=== PATIENT | female | born 1990 | race Caucasian/White ===

== ENCOUNTER 2022-06-21 14:19 | Outpatient (CLI) | payer OTHER, SELFPAY ==
[2022-06-21 15:13] LABS: Beta HCG Quantitative < 2.39 mIU/ML
== END 2022-06-21 14:20 | disposition home or self-care (01) ==
LOC: ANHLAB 14:24
PROVIDERS: PCP Obstetrics & Gynecology; Visit Provider Obstetrics & Gynecology
DX: N92.6 Irregular menstruation, unspecified (principal)
CPT/HCPCS: 36415; 84702

== ENCOUNTER 2023-01-10 16:14 | Outpatient (CLI) | payer OTHER, SELFPAY ==
[2023-01-10 16:46] LABS: Basophils Percent Auto 0.2 % (0.2-1.2); Eosinophils Absolute Auto 0.2 K/mm3 (0-0.3); Eosinophils Percent Auto 1.8 % (0-4.4); Hematocrit 37.4 % (37.0-47.0); Hemoglobin 12.6 g/dL (12.0-15.0); Immature Granulocyte Absolute 0.03 K/mm3 (0.00-0.031); Immature Granulocyte Percent A 0.3 % (0-0.5); Lymphocytes Absolute Auto 1.98 K/mm3 (0.9-3.2); Mean Corpuscular HGB Conc 33.7 g/dl (32-36); Mean Corpuscular Hemoglobin 30.6 pg (26-34); Mean Corpuscular Volume 90.8 fl (80-100); Mean Platelet Volume 8.6 fl (7.4-10.4); Monocytes Absolute Auto 0.7 K/mm3 (0.1-0.6); Monocytes Percent Auto 6.8 % (2.6-8.5); Neutrophils Percent Auto 70.9 % (45.5-73.1); Platelet Count Result 291 k/mm3 (150-375); Red Blood Count 4.12 M/mm3 (4.2-5.4); Red Cell Distribution Width 14.6 % (11.5-14.5); White Blood Count 9.9 K/mm3 (4.5-10.0)
[2023-01-10 16:57] LABS: Appearance Urine Clear (Clear); Bilirubin Urine Negative (Negative); Blood Urine Negative (Negative); Color Urine Yellow (Yellow); Glucose Urine UA Negative (Negative); Ketones Urine Negative (Negative); Leukocyte Esterase Ur Negative LEU/UL (NEGATIVE); Nitrate Urine Negative (Negative); Protein Urine Negative (Negative); Specific Grav Ur 1.022 (1.001-1.035); Urobilinogen Urine 0.2 mg/dL (<2.0)
[2023-01-10 16:58] LABS: Alanine Aminotransferase 26 U/L (6-35); Albumin Level 4.5 g/dL (3.5-5.1); Alkaline Phosphatase 78 U/L (38-126); Anion Gap 8 mmol/L (8-16); Aspartate Amino Transferase 30 U/L (14-36); Bilirubin,Total 0.5 mg/dL (0.2-1.3); Blood Urea Nitrogen 12 mg/dL (7-17); Calcium 8.8 mg/dL (8.4-10.2); Carbon Dioxide 27 mmol/L (22-30); Chloride 102 mmol/L (98-107); Cholesterol 188 mg/dL (0-200); Estimated Glomerular Filt Rate > 60; Glucose 95 mg/dL (65-110); HDL Direct 66 mg/dL; Potassium 4.1 mmol/L (3.4-5.0); Sodium 137 mmol/L (137-145); Triglycerides 174 mg/dL (<150)
[2023-01-10 17:08] LABS: LDL Cholesterol Direct 96 mg/dL
[2023-01-10 17:09] LABS: Add Urine Microscopic? NO
[2023-01-10 17:42] LABS: Hemoglobin A1C 5.2 % (<5.7)
== END 2023-01-10 16:15 | disposition home or self-care (01) ==
LOC: ANHLAB 16:15
PROVIDERS: PCP Nurse Practitioner Family; Visit Provider Nurse Practitioner Family
DX: Z13.0 Encounter for screening for diseases of the blood and blood-forming organs and certain disorders involving the immune mechanism (principal); Z00.00 Encounter for general adult medical examination without abnormal findings; Z13.1 Encounter for screening for diabetes mellitus; Z68.37 Body mass index [BMI] 37.0-37.9, adult; Z13.6 Encounter for screening for cardiovascular disorders; Z13.29 Encounter for screening for other suspected endocrine disorder
CPT/HCPCS: 36415; 80053; 80061; 81003; 83036; 84443; 85025

== ENCOUNTER 2023-01-24 09:02 | Outpatient (CLI) | payer OTHER, SELFPAY ==
[2023-01-24 09:47] LABS: Hematocrit 40.6 % (37.0-47.0); Hemoglobin 13.6 g/dL (12.0-15.0); Mean Corpuscular HGB Conc 33.5 g/dl (32-36); Mean Corpuscular Hemoglobin 30.6 pg (26-34); Mean Corpuscular Volume 91.4 fl (80-100); Mean Platelet Volume 8.5 fl (7.4-10.4); Platelet Count Result 358 k/mm3 (150-375); Red Blood Count 4.44 M/mm3 (4.2-5.4); White Blood Count 7.6 K/mm3 (4.5-10.0)
[2023-01-24 09:59] LABS: Hemoglobin A1C 5.2 % (<5.7)
[2023-01-24 10:01] LABS: Alanine Aminotransferase 32 U/L (6-35); Albumin Level 4.9 g/dL (3.5-5.1); Alkaline Phosphatase 70 U/L (38-126); Anion Gap 9 mmol/L (8-16); Aspartate Amino Transferase 29 U/L (14-36); Bilirubin,Total 0.5 mg/dL (0.2-1.3); Blood Urea Nitrogen 10 mg/dL (7-17); Calcium 8.9 mg/dL (8.4-10.2); Carbon Dioxide 27 mmol/L (22-30); Chloride 102 mmol/L (98-107); Estimated Glomerular Filt Rate > 60; Glucose 85 mg/dL (65-110); Potassium 4.6 mmol/L (3.4-5.0); Sodium 138 mmol/L (137-145)
== END 2023-01-24 09:03 | disposition home or self-care (01) ==
LOC: ANHLAB 09:03
PROVIDERS: PCP Nurse Practitioner Family; Visit Provider Obstetrics & Gynecology
DX: N92.6 Irregular menstruation, unspecified (principal)
CPT/HCPCS: 36415; 80053; 83036; 84439; 84443; 85027

== ENCOUNTER 2023-04-22 08:05 | Outpatient (CLI) | payer OTHER, SELFPAY ==
[2023-04-27 06:05] LABS: Progesterone 18.2 ng/mL (***)
== END 2023-04-22 08:06 | disposition home or self-care (01) ==
LOC: ANHLAB 08:06
PROVIDERS: PCP Nurse Practitioner Family; Visit Provider Obstetrics & Gynecology
DX: N92.6 Irregular menstruation, unspecified (principal)
CPT/HCPCS: 36415; 84144

== ENCOUNTER 2025-07-13 14:13 | Emergency (ER) | payer OTHER, SELFPAY ==
[2025-07-13 14:21] VITALS: BP 130/68; PULSE 122; RESP 18; TEMP 36.4; O2SAT 98
--- NOTE | 2025-07-13 14:28 | ED_ITS ---
HPI - Nausea/Vomiting/Diarrhea General Chief complaint: Nausea/Vomiting/Diarrhea Stated complaint: fever / vomiting Time Seen by Provider: 07/13/25 14:15 Source: patient Mode of arrival: ambulatory Limitations: no limitations History of Present Illness HPI Narrative: This is a 34 y/o female that presents to the urgent care for right flank pain and fever since tuesday, urinary symptoms, and N/V/D. Patient states she has been seen by her OBGYN who did start her on Macrobid yesterday for UTI with E Coli. patient states the flank pain has continued and she still has burning with urination. patient reports her fever has not resolved, remains in the 99-101 range. patient has not been able to keep any fluids down today, 3 episodes of vomiting today, has been chilling, myalgias have been unbareable. patient denies any chest pain, shortness of breath or distress. MD elicited complaint: nausea, vomiting, diarrhea and flank pain Pertinent past history: anorexia Onset (ago): day(s) (4) Description of vomiting: watery Description of diarrhea: watery Associated nausea: Yes Associated abdominal pain: Yes Location of pain: R flank Radiation: right flank Pain consistency: constant Severity: moderate Quality: dull Exacerbating factors: none Relieving factors: none Associated symptoms: myalgias, fever/chills and nausea/vomiting Related Data Home Medications ?Medication ?Instructions ?Recorded ?Confirmed ?Last Taken ?Type nitrofurantoin 07/13/25 Unknown History monohydrate/macrocrystals 100 mg capsule norethindrone 1 mg-ethinyl tablet 07/13/25 Unknown Hi story estradiol 20 mcg (21)-iron 75 mg (7) tablet (Aurovela Fe 1-20 (28)) Allergies Allergy/AdvReac Type Severity Reaction Status Date / Time No Known Allergies Allergy Verified 07/13/25 14:14 Review of Systems Review of Systems: All systems reviewed & are unremarkable except as noted in HPI and below PMFSH Past Medical History Medical History Hyperlipidemia History of hemolysis, elevated liver enzymes, and low platelet (HELLP) syndrome History of pre-eclampsia Depression Generalized anxiety disorder with panic attacks Plantar fasciitis of left foot Encounter to establish care BMI 37.0-37.9, adult Screening for diabetes mellitus Nexplanon removal (~04/2018) Nexplanon insertion (~04/2017) Anxiety Abnormal Pap smear of cervix 06/25/2019 [facility] +hpv Surgical History Surgical History History of History of colposcopy with cervical biopsy (07/19/19) LGSIL +hpv Family History Family History Father Malignant tumor of esophagus Mother Hypertension Social History Social History Smoking status: Former smoker Tobacco type: cigarettes Alcohol intake: current Drinks per week: 8 Substance use: never Substance use type: does not use Lack of Food: Never True Current Housing: I Have Housing Concerned About Future Housing: No Difficulty Paying Gas/Electric Bills: No Difficulty Paying for Meds: No Currently Unemployed: No Education: Bachelor's Degree Difficulty w/ Childcare or Family Care: No Living arrangements: other Additional living arrangements comments: Occupation/Education: occupation 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 Gender identity (if verbalized by the patient): Female Sexual Orientation (if Verbalized by the Patient): Straight or Heterosexual Exam Const: General: cooperative, no acute distress, well developed, alert, awake, Physically active and ill appearing HENMT: Head: normal to inspection, normocephalic and atraumatic Eyes: General: appearance normal, both eyes and all related structures Resp: Effort & Inspection: normal respiratory effort Auscultation: clear to auscultation bilaterally Cardio: Jugular venous distension: no JVD Rate: tachycardic Rhythm: regular rhythm Heart sounds: S1 normal heart sound present and S2 normal heart sound present GI: Inspection: normal to inspection GI Palp: Yes abdominal tenderness, Yes Soft to palpation and Yes Tenderness to palpation present (GI) (right CVA tenderness) Auscultation: normal bowel sounds : General: Yes Bladder palpation abnormal tender and Yes CVA tenderness on the right Back/Spine/Pelvis: Back: CVA tenderness (right cva tenderness) Skin: General skin exam: normal color, no rashes or lesions noted and turgor normal Neuro: General: patient oriented x3, gait normal, tone normal and moves all extremities Cranial nerves: Yes CN's II-XII intact bilaterally Cognition (Neuro): normal cognition Speech: normal speech Gait exam (Neuro): Normal gait present Extrem: General: normal to inspection, full ROM, capillary refill normal and normal exam except as noted Psych: Appearance: grossly normal Mental Status: mental status grossly normal Course Course Emergency Course: This is a 34 y/o female that presents to the urgent care for right flank pain and fever since tuesday, urinary symptoms, and N/V/D. Patient states she has been seen by her OBGYN who did start her on Macrobid yesterday for UTI with E Coli. patient states the flank pain has continued and she still has burning with urination. patient reports her fever has not resolved, remains in the 99-101 range. patient has not been able to keep any fluids down today, 3 episodes of vomiting today, has been chilling, myalgias have been unbearable. patient denies any chest pain, shortness of breath or distress. vitals on arrival noted tachycardia of 122 and afebrile. Patient was tested for Influenza and covid, negative result. on exam patient had right CVA tenderness, flushed appearance and nauseated. patient had tenderness to the suprapubic region. discussed possible causes and diagnostic needs. patient verbalized understanding. patient agreeable to transfer to [facility] for further workup and management. lukenet denies any need for EMS, explained risks and benefits of EMS transport. patient prefers her family transport her. Called Dr Balbuena at [facility], endorsed the patient in detail. Agreeable to accept patient. soco traore will be transferred to [facility] for further management and treatment. Level of Care: Express Care Visit Vital Signs Vital signs: Vital Signs Temperature 97.5 F L 07/13/25 14:21 Pulse Rate 122 H 07/13/25 14:21 Respiratory Rate 18 07/13/25 14:21 Blood Pressure 130/68 07/13/25 14:21 Pulse Oximetry 98 07/13/25 14:21 Oxygen Delivery Room Air 07/13/25 14:21 Temperature 97.5 F L 07/13/25 14:21 Pulse Rate 122 H 07/13/25 14:21 Respiratory Rate 18 07/13/25 14:21 Blood Pressure 130/68 07/13/25 14:21 Pulse Oximetry 98 07/13/25 14:21 Oxygen Delivery Room Air 07/13/25 14:21 Transfer Transfered to: [facility] Transportation: Other (patient requested to go POV, family to transport. ) Transfer rationale: possible sepsis, Kidney stone, Accepting physician: Dr Balbuena Transfer comments: called and spoke with Dr Balbuena, endorsed the patient presentation, exam findings, and testing. accepts the patient. Discharge Plan Discharge Clinical Impression: Acute flank pain Patient Disposition: Acute Care Hospital Condition: Stable Additional Instructions: instructed to go directly to [facility] ER for further management Patient Language: Egyptian Prescriptions: No Action norethindrone-e.estradiol-iron [Aurovela Fe 1-20 (28)] 1 mg-20 mcg (21)/75 mg (7) tablet nitrofurantoin monohyd/m-cryst 100 mg capsule sertraline 25 mg tablet 25 mg PO DAILY Qty: 90 3RF semaglutide (weight loss) 1.7 mg/0.75 mL pen injector 1.7 mg subcut WEEKLY Qty: 3 5RF Follow-up/Referrals: Cecile Matthews NP [Primary Care Provider, [facility]] Time of Disposition: 14:37 Quality NIHSS Nursing Documentation ED NIHSS nursing documentation: reviewed/agree
[2025-07-13 14:44] LABS: EDCOVIDSCREEN Negative (Negative); EDINFLUASCREEN Negative (Negative); EDINFLUBSCREEN Negative (Negative)
== END 2025-07-13 14:43 | disposition short-term general hospital (02) ==
PROVIDERS: Emergency Provider Nurse Practitioner Family; PCP Nurse Practitioner Family
DX: R10.A1 Flank pain, right side (principal); Z20.822 Contact with and (suspected) exposure to COVID-19; Z87.891 Personal history of nicotine dependence; E78.5 Hyperlipidemia, unspecified; F32.A Depression, unspecified; F41.1 Generalized anxiety disorder
CPT/HCPCS: 87426; 87804; 99212; G0463

== ENCOUNTER 2025-07-13 14:55 | Emergency (ER) | payer OTHER, SELFPAY ==
--- NOTE | ~2025-07-13 | CT_ITS ---
Radha Haddadard EXAMINATION: CT abdomen pelvis w con COMPARISON: None HISTORY: abd pain, dysuria, flank pain TECHNIQUE: Axial images were obtained through the abdomen, pelvis post administration of IV contrast. Oral contrast was also administered. Coronal reconstruction images were obtained from the axial views. CT scan performed using dose optimization techniques including the following automated exposure control; adjustment of mA and/or kV; use of iterative reconstruction technique. Automatic exposure control was used to reduce radiation dose. Permanent radiation dose record is archived to PACS. FINDINGS: CT abdomen: LUNG BASES: The lung bases are clear. The visualized portions of the heart and pericardium are unremarkable. LIVER: Mild hepatic steatosis. SPLEEN: Unremarkable. KIDNEYS: Right Kidney: Unremarkable. No calculi. No hydronephrosis. Left Kidney: Unremarkable. No calculi. No hydronephrosis ADRENAL GLANDS: Unremarkable. PANCREAS: Unremarkable. GALLBLADDER/BILIARY: Unremarkable. No biliary dilatation. STOMACH AND ESOPHAGUS: Visualized stomach and esophagus within normal limits. BOWEL/MESENTERY: Moderate fecal content. No colitis or diverticulitis. Appendix is prominent measuring 6 mm although there is no periappendiceal inflammation identified. Mesentery normal. No dilated small bowel loops. ADENOPATHY/RETROPERITONEUM: No lymphadenopathy. AORTA/VASCULATURE: Normal caliber aorta. FREE FLUID OR FREE AIR: Trace free fluid.. CT pelvis: SOLID ORGANS/REPRODUCTIVE: Unremarkable. BLADDER: Within normal limits. OSSEOUS STRUCTURES: No acute osseous abnormality.No suspicious lesions. OVERLYING SOFT TISSUES: Unremarkable. IMPRESSION: 1. No etiology identified to explain the patient's symptoms. Follow-up suggested if symptoms persist. Reviewed, dictated and finalized at location P. IMPRESSION: 1. No etiology identified to explain the patient's symptoms. Follow-up suggeste d if symptoms persist.
[2025-07-13 14:58] VITALS: BP 125/67; PULSE 115; RESP 18; TEMP 36.8; O2SAT 97
[2025-07-13 15:58] LABS: BEDSIDEPREGUCG Negative (Negative)
[2025-07-13 16:12] LABS: Hematocrit 39.4 % (37.0-47.0); Hemoglobin 13.1 g/dL (12.0-15.0); Immature Granulocyte Percent A 0.5 % (0-0.5); Lymphocytes Absolute Auto 1.16 K/mm3 (0.9-3.2); Mean Corpuscular HGB Conc 33.2 g/dl (32-36); Mean Corpuscular Hemoglobin 30.0 pg (26-34); Mean Corpuscular Volume 90.4 fl (80-100); Nucleated Red Blood Cells Absolute Auto 0.000 K/mm3 (0.0-0.012); Nucleated Red Blood Cells Perc 0.0 % (0.0-0.2); Platelet Count Result 328 k/mm3 (150-375); Red Blood Count 4.36 M/mm3 (4.2-5.4); White Blood Count 13.3 K/mm3 (4.5-10.0)
[2025-07-13] MEDS: SODIUM CHLORIDE 0.9% IV 1,000 ML 999 ML IV CONT (16:14)
[2025-07-13] MEDS: ONDANSETRON INJ 4 MG/2 ML VIAL IV PUSH (16:14)
[2025-07-13] MEDS: FAMOTIDINE 20 MG/2 ML VIAL IV PUSH (16:14)
[2025-07-13 16:18] LABS: Add Urine Microscopic? YES; Appearance Urine Cloudy (Clear); Glucose Urine UA Negative (Negative); Leukocyte Esterase Ur Trace LEU/UL (Negative); Need Manual Microscopic Reviewed; Nitrate Urine Negative (Negative); Non Pathogenic Casts 0-2; Specific Grav Ur 1.013 (1.001-1.035)
[2025-07-13 16:19] LABS: Alanine Aminotransferase 67 U/L (6-35); Albumin Level 4.3 g/dL (3.5-5.1); Alkaline Phosphatase 112 U/L (38-126); Anion Gap 12 mmol/L (4-12); Aspartate Amino Transferase 45 U/L (14-36); Bilirubin,Total 1.0 mg/dL (0.2-1.3); Blood Urea Nitrogen 4 mg/dL (7-17); Calcium 9.2 mg/dL (8.4-10.2); Carbon Dioxide 23 mmol/L (22-30); Chloride 100 mmol/L (98-107); Estimated CRCL calculation 98 ml/min; Estimated Glomerular Filt Rate > 60; Glucose 110 mg/dL (65-110); Lipase 40 U/L (23-300); Potassium 3.8 mmol/L (3.4-5.0); Sodium 135 mmol/L (137-145); Total Protein 8.0 g/dL (6.3-8.2)
--- NOTE | 2025-07-13 16:21 | ED.NAVMDI ---
HPI - Nausea/Vomiting/Diarrhea General Chief complaint: Nausea/Vomiting/Diarrhea Stated complaint: Fever, body ache, NVD Time Seen by Provider: 07/13/25 15:37 Source: patient Mode of arrival: ambulatory Limitations: no limitations History of Present Illness HPI Narrative: This is a 34-year-old female that presents to the emergency department for abdominal pain, vomiting. Reports flank pain, dysuria. Reports recently diagnosed with a UTI, taking Macrobid with some relief. Reports she has also had some fevers. Related Data Home Medications ?Medication ?Instructions ?Recorded ?Confirmed ?Last Taken ?Type nitrofurantoin 07/13/25 Unknown History monohydrate/macrocrystals 100 mg capsule norethindrone 1 mg-ethinyl tablet 07/13/25 Unknown History estradiol 20 mcg (21)-iron 75 mg (7) tablet (Aurovela Fe 1-20 (28)) Allergies Allergy/AdvReac Type Severity Reaction Status Date / Time No Known Allergies Allergy Verified 07/13/25 15:02 Review of Systems Review of Systems: All systems reviewed & are unremarkable except as noted in HPI and below PMFSH Past Medical History Medical History Hyperlipidemia History of hemolysis, elevated liver enzymes, and low platelet (HELLP) syndrome History of pre-eclampsia Depression Generalized anxiety disorder with panic attacks Plantar fasciitis of left foot Encounter to establish care BMI 37.0-37.9, adult Screening for diabetes mellitus Nexplanon removal (~04/2018) Nexplanon insertion (~04/2017) Anxiety Abnormal Pap smear of cervix 06/25/2019 [facility] +hpv Surgical History Surgical History History of History of colposcopy with cervical biopsy (07/19/19) LGSIL +hpv Family History Family History Father Malignant tumor of esophagus Mother Hypertension Social History Social History Smoking status: Former smoker Tobacco type: cigarettes Alcohol intake: current Drinks per week: 8 Substance use: never Substance use type: does not use Lack of Food: Never True Current Housing: I Have Housing Concerned About Future Housing: No Difficulty Paying Gas/Electric Bills: No Difficulty Paying for Meds: No Currently Unemployed: No Education: Bachelor's Degree Difficulty w/ Childcare or Family Care: No Living arrangements: other Additional living arrangements comments: Occupation/Education: occupation 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 HEAD: Normocephalic, atraumatic. EYES: EOMI. CHEST: Clear to auscultation. No respiratory distress. No wheezes rales or rhonchi HEART: Regular rate and rhythm. No murmur heard. Normal peripheral pulses. ABDOMEN: Soft, nontender, nondistended, normal active bowel sounds. EXTREMITIES: Normal range of motion. No edema. SKIN: Warm, dry, no rash. NEURO: No focal deficits. Alert and oriented x3. PSYCH: Normal mood and affect Course Vital Signs Vital signs: Vital Signs Temperature 98.2 F 07/13/25 14:58 Pulse Rate 115 H 07/13/25 14:58 Respiratory Rate 18 07/13/25 14:58 Blood Pressure 125/67 07/13/25 14:58 Pulse Oximetry 97 07/13/25 14:58 Oxygen Delivery Room Air 07/13/25 14:58 Temperature 98.2 F 07/13/25 14:58 Pulse Rate 115 H 07/13/25 14:58 Respiratory Rate 18 07/13/25 14:58 Blood Pressure 125/67 07/13/25 14:58 Pulse Oximetry 97 07/13/25 14:58 Oxygen Delivery Room Air 07/13/25 14:58 MDM - Nausea/Vomiting/Diarrhea MDM Narrative Medical decision making narrative: Patient presents the emergency department for abdominal pain, vomiting, dysuria. She is afebrile and nontoxic appearing. Tachycardic upon arrival, this normalized with IV fluids. CBC with leukocytosis to 13.3. Metabolic panel with normal kidney function. Urine with evidence of infection. CT abdomen pelvis without acute findings. Patient given 1st dose of antibiotics IV in the ER. We spoke about further inpatient management versus discarge home. Patient would like to trial further outpatient management Differential Diagnosis Differential diagnosis: Likely food poisoning, gastroenteritis, dehydration and other (UTI, kidney stone) Lab Data Attestation: I reviewed the patient's lab results. 07/13/25 15:52 07/13/25 15:52 Labs: Lab Results 07/13/25 07/13/25 Range/Units 15:52 15:57 WBC 13.3 H (4.5-10.0) K/mm3 RBC 4.36 (4.2-5.4) M/mm3 Hgb 13.1 (12.0-15.0) g/dL Hct 39.4 (37.0-47.0) % MCV 90.4 (80-100) fl MCH 30.0 (26-34) pg MCHC 33.2 (32-36) g/dl RDW 13.6 (11.5-14.5) % Plt Count 328 (150-375) k/mm3 MPV 8.7 (7.4-10.4) fl Immature Gran % (Auto) 0.5 (0-0.5) % Neut % (Auto) 82.6 H (45.5-73.1) % Lymph % (Auto) 8.7 L (18.3-44.2) % [place] % (Auto) 7.8 (2.6-8.5) % Eos % (Auto) 0.1 (0-4.4) % Baso % (Auto) 0.3 (0.2-1.2) % Lymph # (Auto) 1.16 (0.9-3.2) K/mm3 [place] # (Auto) 1.0 H (0.1-0.6) K/mm3 Eos # (Auto) 0.0 (0-0.3) K/mm3 Baso # (Auto) 0.0 (0.0-0.1) K/mm3 Abs Immat Gran (auto) 0.06 H (0.00-0.031) K/mm3 Absolute Neuts (auto) 11.0 H (1.3-6.7) K/mm3 Absolute Nucleated RBC 0.000 (0.0-0.012) K/mm3 Nucleated RBC % 0.0 (0.0-0.2) % Sodium 135 L (137-145) mmol/L Potassium 3.8 (3.4-5.0) mmol/L Chloride 100 (98-107) mmol/L Carbon Dioxide 23 (22-30) mmol/L Anion Gap 12 (4-12) mmol/L BUN 4 L D (7-17) mg/dL Creatinine 0.70 (0.7-1.0) mg/dL Estim Creat Clear Calc 98 ml/min Estimated GFR > 60 (59 - ) Glucose 110 (65-110) mg/dL Calcium 9.2 (8.4-10.2) mg/dL Total Bilirubin 1.0 (0.2-1.3) mg/dL AST 45 H (14-36) U/L ALT 67 H (6-35) U/L Alkaline Phosphatase 112 (38-126) U/L Total Protein 8.0 (6.3-8.2) g/dL Albumin 4.3 (3.5-5.1) g/dL Lipase 40 (23-300) U/L Urine Color Dark yellow (Yellow) Urine Appearance Cloudy H (Clear) Urine pH 7.0 (5.0-9.0) Ur Specific [place] 1.013 (1.001-1.035) Urine Protein 2+ H (Negative) mg/dL Urine Glucose (UA) Negative (Negative) mg/dL Urine Ketones 3+ H (Negative) mg/dL Ur Blood (Man) Negative (Negative) Urine Nitrate Negative (Negative) Urine Bilirubin 1+ H (Negative) Urine Urobilinogen 1.0 (<2.0) mg/dL Add Ur Microanalysis Reviewed Leukocyte Esterase Rfl Trace H (Negative) CHRISTY/UL Urine RBC 6-10 H (0-2) /hpf Urine WBC 21-50 H (0-3) /hpf Ur Squamous Epith Cells Few (Few) /hpf Urine Bacteria 1+ H /hpf Urine Casts 0-2 POC Urine HCG, Qual Negative (Negative) Imaging Data Radiologist's impression: ITS Impressions Abdomen/Pelvis CT 07/13/25 17:16 IMPRESSION: 1. No etiology identified to explain the patient's symptoms. Follow-up suggested if symptoms persist. Critical Care Time Critical Care Time Critical Care Time: No Discharge Plan Discharge Clinical Impression: Pyelonephritis Patient Disposition: Home Condition: Stable Instructions: Antibiotic Form, Kidney Infection (ED) Additional Instructions: Return to the ER if you experience fever, abdominal pain with nausea and vomiting, you are unable to keep down liquids or solids, or any other symptoms that are concerning to you Remain well hydrated. Take oral antibiotics as prescribed Follow up with primary care doctor Patient Language: Niuean Prescriptions: New cefdinir 300 mg capsule 300 mg PO Q12H 10 Days Qty: 20 0RF ondansetron 4 mg tablet,disintegrating 4 mg PO Q8H PRN (Reason: nausea and vomiting) Qty: 10 0RF No Action norethindrone-e.estradiol-iron [Aurovela Fe 1-20 (28)] 1 mg-20 mcg (21)/75 mg (7) tablet nitrofurantoin monohyd/m-cryst 100 mg capsule sertraline 25 mg tablet 25 mg PO DAILY Qty: 90 3RF semaglutide (weight loss) 1.7 mg/0.75 mL pen injector 1.7 mg subcut WEEKLY Qty: 3 5RF Follow-up/Referrals: Cecile Matthews NP [Primary Care Provider, Family Practice]
[2025-07-13] MEDS: cefTRIAXone 1 GM in SODIUM CHLORIDE 0.9% IV 50 ML 100 ML IVPB (18:14)
--- NOTE | 2025-07-13 18:23 | PC.NURSE ---
Per PETER Tran, second set of blood cultures not needed prior to starting antibiotics.
[2025-07-13 18:57] VITALS: BP 132/78; PULSE 98; RESP 17; TEMP 36.8; O2SAT 99
== END 2025-07-13 18:58 | disposition home or self-care (01) ==
PROVIDERS: Emergency Provider Physician Assistant; PCP Nurse Practitioner Family
DX: N12 Tubulo-interstitial nephritis, not specified as acute or chronic (principal); E78.5 Hyperlipidemia, unspecified; F32.A Depression, unspecified; F41.1 Generalized anxiety disorder; Z87.891 Personal history of nicotine dependence; Z79.3 Long term (current) use of hormonal contraceptives; Z79.899 Other long term (current) drug therapy
CPT/HCPCS: 36415; 74177; 80053; 81001; 81025; 83690; 85025; 87086; 96361; 96365; 96375; 99284; J0696; J2405; J7030; Q9967

== ENCOUNTER 2025-07-30 08:22 | Outpatient (CLI) | payer OTHER, SELFPAY ==
--- OUTSIDE RECORDS SUMMARY | 2025-07-30 08:42 | XMS_ITS | Clinical Summary ---
Author Organization [facility] Building Address [address] [place] [phone] Care Team Providers Care Ripper Operator Name Role Phone Byron Cecile ARGUETA Primary Care Provider [phone] Allergies No known active allergies Medications polyethylene glycol (MIRALAX) 17 gram/dose bulk powderIndicatio ns:constipation Take 17 g by mouth daily as needed (constipation) 289 g 08/15/20 Active Additional Information Patient not taking.Reported on 08/28/2024 acetaminophen 500 mg capsuleIndicati ons:Pain Take 2 capsules (1,000 mg total) by mouth every 6 (six) hours as needed for pain 90 tablet 08/15/20 Active Additional Information Patient not taking.Reported on 08/28/2024 docusate sodium (COLACE) 100 mg capsuleIndicati ons:constipatio n,Stool Softener Take 1 capsule (100 mg total) by mouth 2 (two) times a day as needed for constipation 60 capsule 08/15/20 Active Additional Information Patient not taking.Reported on 08/28/2024 ibuprofen (ADVIL,MOTRIN) 600 mg tablet Take 1 tablet (600 mg total) by mouth every 6 (six) hours as needed for pain 90 tablet 08/15/20 Active Additional Information Patient not taking.Reported on 08/28/2024 NIFEdipine (PROCARDIA XL/ADALAT CC) 60 mg 24 hr tablet Take 1 tablet (60 mg total) by mouth daily 30 tablet 2 08/16/20 Active Additional Information Patient not taking.Reported on 10/10/2024 oxyCODONE (ROXICODONE) 5 mg immediate release tabletIndicatio ns:Pain Take 1 tablet (5 mg total) by mouth every 4 (four) hours as needed for pain 10 tablet 08/15/20 24 Active Additional Information Patient not taking.Reported on 08/28/2024 sertraline (ZOLOFT) 50 mg tablet Take 1 tablet (50 mg total) by mouth daily 30 tablet 5 08/28/20 24 Active Additional Information Patient not taking.Reported on 06/24/2025 norethindrone-e .estradioL-iron (JUNEL FE 10/15) 1 mg-20 mcg (21)/75 mg (7) per tablet Take 1 tablet by mouth daily 84 tablet 3 01/31/20 25 026 Active Additional Information Patient not taking.Reported on 06/24/2025 Wegovy 1.7 mg/0.75 mL auto-injector INJECT 1.7 MG (0.75 ML) SUBCUTANEOUSLY WEEKLY 05/26/20 25 Active Zepbound 2.5 mg/0.5 mL pen injector INJECT 2.5 MG UNDER THE SKIN ONCE WEEKLY 02/26/20 25 Active sertraline (ZOLOFT) 25 mg tablet Take 1 tablet (25 mg total) by mouth daily 04/26/20 25 Active nitrofurantoin monohydrate (MACROBID) 100 mg capsule Take 1 capsule (100 mg total) by mouth 2 (two) times a day for 5 days 10 capsule 07/11/20 25 025 Active Problems Problem Noted Date Diagnosed Date Depression 06/24/2025 Generalized anxiety disorder with panic attacks 06/24/2025 Plantar fasciitis of left foot 06/24/2025 History of severe pre-eclampsia 06/24/2025 History of section 06/24/2025 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 WBC POD2 48, pt denying signs/symptoms of infection. Will monitor for infectious sxs throughout the day and repeat cbc tomorrow. POD3 WBC 15.9 # Heme: EBL 900 mL. Hemodynamically stable. # CV/Pulm: Pre-eclampsia with severe features- Blood pressures moderately controlled on NXL30, plan to uptitrate to N60XL on 08/15. Asymptomatic, denies COBIAN/RUQ pain/vision changes. CBC/CMP notable for thrombocytopenia to meagan 100, AST/ALT peak 84/61, UPC 10, LDH 366. LFTs wnl POD2. S/p MgSO4 for 24h PP. POD3 BP>50% MR, increased NXL 60mg, remains asymptomatic. Consented and enrolled in home BP monitoring. # GI/: Tolerating PO. Voiding spontaneously. # Pain: Controlled with above regimen. #Anxiety: mood stable on current dose of Zoloft 25mg. Social work consult ordered. # MOC: Declines s/p counseling. # MOF: . Urine drug screen not indicated. Patient informed of results: N/A. # Post DVT prophylaxis: The patient has the following MAJOR risk factors BMI >/= 40 and the following MINOR risk factors delivery and preeclampsia. enoxaparin 40 mg BID ordered for VTE prophylaxis. # Disposition: Follow up task sent to [facility] scheduling pool for appointment in 2 weeks. Desires discharge home today. Service Coverage These phones are service phones and carried 18/04 in house: R1 (first call) [phone] R1 alt (second call) [phone] R4 (Chief) [phone] 33 weeks gestation of 08/11/2024 08/28/2024 Encounter for induction of labor 08/11/2024 08/28/2024 Preeclampsia, severe, third trimester 08/11/2024 06/24/2025 Obesity affecting in first trimester 07/02/2024 08/28/2024 resulting from in vitro fertilization, antepartum 02/29/2024 08/28/2024 Encounters Date Type Department Care Team Description 07/11/2025 Results Follow-Up [facility] Obstetrical Gynecology [address] [place] [address] [place] [phone] Neelam High MD Urinalysis reflex to microscopic and culture Urine, bladder, Urinalysis, microscopic only, Urine culture Urine, bladder 07/10/2025 9:25 AM CDT Lab [facility] Building 1 Lab [address] [place] [address] UTI symptoms 07/10/2025 Orders Only [facility] Obstetrical Gynecology [address] [facility] [address] [place] [address] Neelam High MD UTI symptoms (Primary Dx) 07/09/2025 Telephone [facility] Obstetrical Gynecology [address] [place] [address] [address] [place] [phone] Neelam High MD 07/04/2025 Results Follow-Up [facility] Obstetrical Gynecology [address] [place] [address] [place] [phone] Radha Pugh CNM Pap and High Risk HPV and Genotyping (Cytology Component) 06/24/2025 4:31 PM CDT - 06/24/2025 11:59 PM CDT Hospital Encounter [facility] [address] [place] [address] Screening for cervical cancer Discharge Disposition: Discharge to home or self care 06/24/2025 1:30 PM CDT Office Visit [facility] Obstetrical Gynecology [address] [place] [phone] Neelam High MD Screening for cervical cancer (Primary Dx); Well woman exam from Last 3 Months Immunizations Immunization Administration Dates Next Due Marylou (J&J) SARS-CoV-2 Vaccination 12/31/2020 MMR 08/15/2024(Deferred: No longer n eeded) Tdap 07/02/2024 Varicella 08/15/2024(Deferred: No longer n eeded) Surgical History Surgery Date Site/Laterality Comments SECTION Medical History Medical History Date Comments Abnormal Pap smear of cervix Depression Anxiety Family History Medical History Relation Name Comments Colon cancer Maternal Grandfather Hypertension Mother Breast cancer Neg Hx Ovarian cancer Neg Hx Uterine cancer Neg Hx Relation Name Status Comments Maternal Grandfather Mother Social History Tobacco Use Types Packs/Day Years Used Date Smoking Tobacco: Former Cigarettes Smokeless Tobacco: Never C Utilities Answer Date Recorded In the past 12 months has th e electric, gas, oil, or water company threatened to shut off services in your home? No 08/15/2024 Social Connection and Isolation Panel Answer Date Recorded In a typical week, how many times do you talk on the phone with family, friends, or neighbors? More than three times a week 08/15/2024 How often do you get togethe r with friends or relatives? Twice a week 08/15/2024 How often do you attend chur ch or temple services? Never 08/15/2024 Do you belong to any clubs o r organizations such as alevism groups, unions, fraternal or athletic groups, or school groups? Yes 08/15/2024 How often do you attend meet ings of the clubs or organizations you belong to? 1 to 4 times per year 08/15/2024 Are you , , di vorced, , never , or living with a partner? 08/15/2024 Overall Financial Resource Strain (CARDIA) Answe r Date Recorded How hard is it for you to pa y for the very basics like food, housing, medical care, and heating? Not hard at all 08/15/2024 Hunger Vital Sign Answer Date Recorded Within the past 12 months, y ou worried that your food would run out before you got the money to buy more. Never true 08/15/20 24 Within the past 12 months, t he food you bought just didn't last and you didn't have money to get more. Never true 08/15/2024 PRAPARE - Transportation Answer Date Re corded In the past 12 months, has l ack of transportation kept you from medical appointments or from getting medications? No 07/28 In the past 12 months, has l ack of transportation kept you from meetings, work, or from getting things needed for daily living? No 08/15/2024 Mcrae Depression Scale Answer Date Recorded Mcrae Depression Scale Total 9 10/10/2024 The thought of harming myself has occurred to me . Never 10/10/2024 Housing Stability Vital Sign Answer Alexandre e Recorded In the last 12 months, was t here a time when you were not able to pay the mortgage or rent on time? No 08/15/2024 In the past 12 months, how m any times have you moved where you were living? 1 08/15/2024 At any time in the past 12 m [facility], were you homeless or living in a correction (including now)? No 08/15/2024 Personal Safety Answer Date Recorded Have you ever been in or are you currently in a harmful physical or emotional relationship or is someone making you feel afraid or unsafe? Denies 08/11/2024 Comments No Sex and Gender Information Value Date Recorded Sex Assigned at Not on file Legal Sex Female 8:44 AM CDT Gender Identity Not on file Sexual Orientation Not on file Obstetrics History Para Term AB IAB SAB Ectopic Multiple Livin g Live Births 1 1 1 0 1 1 Date Outcome GA Total Labor Labor/2nd/3rd Weight Sex Type Anes PTL Ivonne A1 A5 Name Clin 2023 34w 0d 0h 01m 0h 01m M C-Sec tion Epidur al Y Livin g 6 8 Elderjosh Haddadar d Huysm an, Luis MD Complications:Pre eclampsia, Intolerance Delivery Location:[facility] Main C ampus ([facility] L AND D PROCEDURE) Last Filed Vital Signs Vital Sign Reading Time Taken Comments Blood Pressure 116/68 06/24/2025 1:22 PM CDT Pulse 97 08/28/2024 9:32 AM VARNISH COOKER Temperature 36.6 C (97.9 F) 08/15/2024 11:04 AM VARNISH COOKER Respiratory Rate 18 08/15/2024 11:04 AM VARNISH COOKER Oxygen Saturation 99% 08/28/2024 9:32 AM VARNISH COOKER Inhaled Oxygen Concentration - - Weight 87.5 kg (193 lb) 06/24/2025 1:22 PM CDT Height 154.9 cm (5' 1) 06/24/2025 1:22 PM CDT Body Mass Index 36.47 06/24/2025 1:22 PM CDT Plan of Treatment Health Maintenance Due Date Last Done Comments Varicella Vaccines (1 of 2 - 13+ 2-dose series) 2004 Hepatitis B Screening 2009 HPV Vaccines (1 - 3-dose SCD M series) 2018 Covid-19 Vaccine (2 - 2024-2 6 season) 2025 12/31/2020 Influenza Vaccine (#1) 2025 Depression Screening 10/10/2025 10/10/2024 Cervical Cancer Screening 06/24/20262024, 06/24/2025 Regular Well Visit/Exam 18-64 06/24/2026 06/24/2025 DTaP/Tdap/Td Vaccine (2 - Td or Tdap) 07/02/2034 07/02/2024 Hepatitis C Screening Completed 03/05/2024 Pneumococcal vaccine <65 Aged Out No longer eligible based on patient's age to complete this topic Procedures Procedure Name Priority Date/Time Associated Diagnosis Comments URINALYSIS, MICROSCOPIC ONLY Routine 07/10/2025 9:26 AM CDT UTI symptoms URINE CULTURE Routine 07/10/2025 9:26 AM CDT URINALYSIS AND REFLEX TO MICROSCOPIC AND CULTURE Routine 07/10/2025 9:26 AM CDT UTI symptoms PAP AND HIGH RISK HPV, REFLEX TO GENOTYPING Routine 06/24/2025 1:33 PM CDT Screening for cervical cancer HIGH RISK HPV DNA DETECTION WITH GENOTYPING Routine 06/24/2025 1:33 PM CDT Screening for cervical cancer HEPATITIS C ANTIBODY Routine 03/05/2024 1:33 PM CDT Encounter for supervision of normal in first trimester, unspecified from Last 3 Months or Most Recently Relevant to Health Maintenance Results * (ABNORMAL) Urinalysis reflex to microscopic and culture Urine, bladder (07/10/2025 9:26 AM CDT) Color, ur Yellow Yellow Comment:Testing performed by : [address] [address] Clarity, ur Turbid(A) Clear [facility] Comment:Testing performed by : [address] [address] Specific gravity, ur 1.014 1.003 - 1.030 [facility] Comment:Testing performed by : [address] [address] pH, urine 6.5 [facility] Comment: Interpretive Data U rine pH is affected by diet, medications, systemic acid-base disturbances, and renal tubular function. pH may affect urinary stone formation. For example, urine pH below 6.0 may help reduce the tendency for calcium phosphate stones and pH greater than 6.0 may reduce the tendency for uric acid stone formation. Source: [facility] [employer] Current Interpretive Data was last revised on 2017 Testing performed by: [facility], [address] [place] [address]., [address] Protein, ur ql 2+(A) Negative [facility] Comment:Testing performed by : [address], [place]., [address] Glucose, ur ql Negative Negative [facility] Comment:Testing performed by : [address], [place]., [address] Ketones, ur Negative Negative [facility] Comment:Testing performed by : [address] [address] Bilirubin, ur 1+(A) Negative [facility] Comment:Testing performed by : [address], [place]., [address] Blood, ur 3+(A) Negative [facility] Comment:Testing performed by : [address] [address] Urobilinogen, ur 2.0(A) <2.0 mg/dL [facility] Comment:Testing performed by : [address] [address] Nitrite, ur Positive(A) Negative [facility] Comment:Testing performed by : [address] [address] Leukocyte esterase, ur 4+(A) Negative [facility] Comment:Testing performed by : [address] [address] UA reflex comment Reflex to microscopic UA will be performed. [facility] Comment:Testing performed by : [address], [place]., [address] Urine, bladder 07/10/2025 9: 26 AM CDT 07/10/2025 10:37 AM CDT Narrative [facility] - 07/10/2025 10:40 AM CDT Urine Collection Method->Clean Catch Neelam High MD LAB MICROBIOLOGY - GENERAL ORDERABLES Final Result Performing Organization Address [facility] de Phone Number [facility] GALINDO [address] [place] [phone] * (ABNORMAL) Urinalysis, microscopic only (07/10/2025 9:26 AM CDT) WBC, ur >50(A) 0 - 5 /HPF Comment:Testing performed by : [address] [address] RBC, ur >50(A) 0 - 2 /HPF [facility] Comment:Testing performed by : [address] [address] Epithelial cells, squamous, ur >50(A) 0 - 5 /HPF [facility] Comment:Testing performed by : [address] [address] Bacteria, ur 4+(A) [facility] Comment:Testing performed by : [address] [address] Mucous, ur Present(A) [facility] Comment:Testing performed by : [address] [address] Culture Reflex Comment Reflex to urine culture will be performed. [facility] Comment:Testing performed by : [address] [address] Urine, bladder 07/10/2025 9: 26 AM CDT 07/10/2025 10:37 AM CDT Neelam High MD LAB URINE ORDERABLES Final Result Performing Organization Address [facility] Co de Phone Number [facility] [address] [place] [address] * (ABNORMAL) Urine culture Urine, bladder (07/10/2025 9:26 AM CDT) Report Final Report: Greater than or equal to 100,000 colonies/mL of Escherichia coli Plus growth of clinically insignificant bacterial juancho. (.) Comment:Testing performed by : [facility], [address] [place]., [address] Organism ESCHERICHIA COLI [facility] Organism PLUS GROWTH OF CLINICALLY INSIGNIFICANT JUANCHO. [facility] Urine, bladder 07/10/2025 9: 26 AM CDT 07/10/2025 1:47 PM CDT Narrative [facility] - 07/12/2025 10:17 AM CDT Urine culture reflexed based upon urinalysis results. Testing performed by [facility] Microbiology Laboratory ([phone]) Organism Antibiotic Method Susceptibility Escherichia coli Ampicillin INTERPRETATION Resistant Escherichia coli Cefazolin INTERPRETATION Susceptible Escherichia coli Nitrofurantoin INTERPRETATION Susceptible Escherichia coli Gentamicin INTERPRETATION Resistant Escherichia coli Trimethoprim with Sulfamethoxazole IN TERPRETATION Resistant Escherichia coli Meropenem INTERPRETATION Susceptible Escherichia coli Cefepime INTERPRETATION Susceptible Escherichia coli Ciprofloxacin INTERPRETATION Susceptible Escherichia coli Ceftazidime INTERPRETATION Susceptible Escherichia coli Ceftriaxone INTERPRETATION Susceptible Escherichia coli Piperacillin/Tazobactam INTERPRETATIO N Susceptible Escherichia coli Cephalexin INTERPRETATION Susceptible Escherichia coli Cefuroxime-axetil INTERPRETATION Susceptible Escherichia coli Cefdinir INTERPRETATION Susceptible us Neelam High MD LAB MICROBIOLOGY - GENERAL ORDERABLES Final Result [facility] [address] [facility] Department [place] [address] * High Risk HPV DNA Detection with Genotyping (Molecular component) (06/24/2025 1:33 PM CDT) HPV HR 16 Not Detected Not Detected [facility] Comment:Testing performed by : [facility], [address] [place]., [address] HPV HR 18 Not Detected Not Detected [facility] Comment:Testing performed by : [facility], [address] [place]., [address] HPV HR Non 16/18 Not Detected Not Detected [facility] Comment: Interpretive Data Nucleic acid amplification for detection of high-risk Human Papilloma virus (HPV) is performed by the Reshma Lindsay 6800 HPV test. This assay specifically detects HPV-16 and HPV-18 genotypes. The following HPV genotypes are detected as high-risk HPV: HPV-31, 33, 35, ,39, 45, 51, 52, 56, 58, 59, 66, and 68. This assay has been approved by the [place] Food and Drug Administration for detection of HPV in cervical specimens collected by a physician using an endocervical brush/spatula or cervical broom and placed in the ThinPrep Pap Test PreservCyt collection containers. The performance characteristics of this test have been verified by the [facility] Molecular Infectious Disease laboratory. Correlate with separately reported cytology results, as applicable. Interpretive data last revised 23 Testing performed by: [facility], [address] [place]., [address] Endocervical 06/24/2025 1:33 PM CDT 06/24/2025 10:45 PM CDT Narrative [facility] - 06/25/2025 8:08 PM CDT Clinical history and diagnosis->routine Number of vials->1 Testing type->Screening Last menstrual period (date if known)->06/03/2025 Neelam High MD LAB BODY FLUIDS AND STOOLS ORDERABLES Final Result [facility] [address] [facility] Department [place] [address] [facility] * Pap and High Risk HPV and Genotyping (Cytology Component) (06/24/2025 1:33 PM CDT) Endocervical (Pap test) 06/24/2025 1:33 PM CDT 06/26/2025 8:42 AM CDT Narrative [facility] - 07/03/2025 6:58 AM CDT EPIC results best viewed via link to PDF [facility] [place] [address] [place] [address] Note to Patients: This report may contain a detailed description of human tissue sent by a health care provider to the laboratory for pathologic evaluation. The content of this report is essential for diagnosis and may provide important critical findings. This information may be unfamiliar to patients to review without a medical professional present. It is advised that the patient review this report in the presence of a health care provider who can answer questions and explain the details. CYTOPATHOLOGY REPORT FINAL Patient Name: RADHA VALERIO Gender: F : 1990 (Age: 34) Address: [address] [place] [address] [facility] #: [id number] Service: DEFAULT Location: Patient Type: [facility] SPECIMEN Taken: 06/24/2025 Received: 06/26/2025 Accessioned: 06/26/2025 Reported: 07/03/2025 Physician(s): Fransisca High M.D. FINAL INTERPRETATION SOURCE OF SPECIMEN Liquid based Thin Prep pap with HPV: STATEMENT OF ADEQUACY - Satisfactory for evaluation - Endocervical cells/transformation zone sample absent GENERAL CATEGORIZATION: - Negative for squamous intraepithelial lesion or malignancy Comments (Normal-Negative for High Risk HPV) HPV HR 16- Not detected HPV HR 18-Not detected HPV HR non 16/18- Not detected Interpretive Data Nucleic acid amplification for detection of high-risk Human Papilloma virus (HPV) is performed by the Reshma Lindsay 6800 HPV test. This assay specifically detects HPV- 16 and HPV-18 genotypes. The following HPV genotypes are detected as high-risk HPV: HPV-31, 33, 35, 39, 45, 51, 52, 56, 58, 59, 66, and 68. This assay has been approved by the [place] Food and Drug Administration for detection of HPV in cervical specimens collected by a physician using an endocervical brush/spatula or cervical broom and placed in the ThinPrep Pap Test PreservCyt collection containers. The performance characteristics of this test have been verified by the [facility] Molecular Infectious Disease laboratory. Correlate with reported cytology results, as applicable. Interpretive data last revised 23 tim/07/03/2025 06:58 LIZANDRO Akbar(ASCP) Report Electronically Reviewed and Signed Out By LIZANDRO Akbar(ASCP) 07/03/2025 06:58:52 Cervicovaginal Cytology (Pap Test) Disclaimer: The Pap test is a screening test used to detect cervical cancer and its precursors; it is not a diagnostic procedure. False negative and false positive results do occur. Pap test results should be interpreted in the context of pertinent clinical information and biopsy results as indicated. [facility] Clinical Laboratory Improvement Amendments (CLIA) mandate that cytologic and histologic results be correlated for laboratory quality nurse & improvement standards. FOR ALL HIGH-GRADE CASES we request submission of follow-up histological material and/or reports that have not been previously provided so that we may fulfill said required standards. Gross Description A. Liquid based Thin Prep pap with HPV: Cervical/vaginal - Screening ThinPrep Clinical Diagnosis and History Last Menstrual Period: 06/03/25 The patient is a 34 year old female with screening. Report Images and scanned documents, if included only viewable in PDF version The performance characteristics of some immunohistochemical stains, in-situ hybridization and fluorescence in-situ hybridization tests and immunophenotyping by flow cytometry cited in this report (if any) were determined by the Surgical Pathology Department at [facility] as part of an ongoing quality control lab technician program and in compliance with federally mandated regulations drawn from the Clinical Laboratory Improvement Act of 1988 (CLIA '88). Some of these tests rely on the use of analyte specific reagents and are subject to specific labeling requirements by the [place] Food and Drug Administration. Such diagnostic tests may only be performed in a facility that is certified by the Department of Health and Human Services as a high complexity laboratory under CLIA '88. The FDA has determined that such clearance or approval is not necessary. This test is used for clinical purposes. It should not be regarded as investigational or for research. Nevertheless, federal rules concerning the medical use of analyte specific reagents require that the following disclaimer be attached to the report: This test was developed and its performance characteristics determined by the Surgical Pathology Department of [facility]. It has not been cleared or approved by the [place]. S. Food and Drug Administration. Neelam High MD LAB CYTOLOGY ORDERABLES Fi nal Result [facility] * Hepatitis C antibody Blood (03/05/2024 1:33 PM CDT) Hep C Ab Nonreactive Nonreactive Comment: Antibodies to HCV not detected. Does NOT exclude the possibility of recent exposure to HCV. Current interpretive data was last revised on 22 Interpretive Data Nonreactive: Antibodies to HCV not detected. Does NOT exclude the possibility of recent exposure to HCV. Equivocal: Equivocal for HCV antibodies. Supplemental molecular testing will be automatically performed to determine infection status in accordance with current CDC screening recommendations. Reactive: Positive for HCV antibodies. This may represent current or past HCV infection. Supplemental molecular testing will be automatically performed to determine current infection status in accordance with current CDC screening recommendations. Interpretive data was last revised on 2019. Blood 03/05/2024 1:33 PM CDT 03/05/2024 6:30 PM CDT us Jolynn Warren NP LAB MICROBIOLOGY - GENERAL O RDERABLES Edited Result - Final [facility] [address] [facility] Department of Laboratories [place], [place] [id number] from Last 3 Months or Most Recently Relevant to Health Maintenance [facility] Advance Directives For more information, please contact: [phone] * Full Code (Latest Code Status on File) Date Activated Date Inactivated Comments 08/12/2024 6:52 AM 08/15/2024 6:11 PM * Full Code Date Activated Date Inactivated Comments 08/11/2024 12:49 PM 08/11/2024 9:02 PM Full CPR in case of cardiopulmonary arrest Care Teams Ripper Operator Relationship Specialty Start Date End Date Cecile Matthews NP [address] [id number] PCP - General Family Medicine 06/24/25
[2025-07-30 08:53] LABS: Hematocrit 40.0 % (37.0-47.0); Hemoglobin 13.2 g/dL (12.0-15.0); Immature Granulocyte Percent A 0.3 % (0-0.5); Lymphocytes Absolute Auto 1.71 K/mm3 (0.9-3.2); Mean Corpuscular HGB Conc 33.0 g/dl (32-36); Mean Corpuscular Hemoglobin 29.8 pg (26-34); Mean Corpuscular Volume 90.3 fl (80-100); Nucleated Red Blood Cells Absolute Auto 0.000 K/mm3 (0.0-0.012); Nucleated Red Blood Cells Perc 0.0 % (0.0-0.2); Platelet Count Result 393 k/mm3 (150-375); Red Blood Count 4.43 M/mm3 (4.2-5.4); White Blood Count 9.9 K/mm3 (4.5-10.0)
[2025-07-30 09:20] LABS: Alanine Aminotransferase 24 U/L (6-35); Albumin Level 4.5 g/dL (3.5-5.1); Alkaline Phosphatase 92 U/L (38-126); Anion Gap 8 mmol/L (4-12); Aspartate Amino Transferase 41 U/L (14-36); Bilirubin,Total 0.6 mg/dL (0.2-1.3); Blood Urea Nitrogen 7 mg/dL (7-17); Calcium 8.7 mg/dL (8.4-10.2); Carbon Dioxide 25 mmol/L (22-30); Chloride 103 mmol/L (98-107); Cholesterol 179 mg/dL (0-200); Estimated Glomerular Filt Rate > 60; Glucose 90 mg/dL (65-110); HDL Direct 45 mg/dL; Potassium 4.2 mmol/L (3.4-5.0); Sodium 136 mmol/L (137-145); Total Protein 7.6 g/dL (6.3-8.2); Triglycerides 237 mg/dL (<150)
[2025-07-30 09:38] LABS: Add Urine Microscopic? YES; Appearance Urine Cloudy (Clear); Glucose Urine UA Negative (Negative); Leukocyte Esterase Ur 2+ LEU/UL (Negative); Need Manual Microscopic Reviewed; Nitrate Urine Negative (Negative); Non Pathogenic Casts 0-2; Specific Grav Ur 1.014 (1.001-1.035)
== END 2025-07-30 08:23 | disposition home or self-care (01) ==
PROVIDERS: PCP Nurse Practitioner Family; Visit Provider Nurse Practitioner Family
DX: N39.0 Urinary tract infection, site not specified (principal); R74.8 Abnormal levels of other serum enzymes; E78.5 Hyperlipidemia, unspecified
CPT/HCPCS: 36415; 80053; 80061; 81001; 85025; 87077; 87086; 87186